=== PATIENT | female | born 1955 | race Caucasian/White ===

== ENCOUNTER 2018-08-25 10:57 | Emergency (ER) | payer OTHER ==
[2018-08-25 11:08] VITALS: BP 140/95; PULSE 70; TEMP 98.3; BMI 21.6
--- NOTE | 2018-08-25 12:18 | PDOC ---
History of Present Illness - General Chief Complaint: Injury Stated Complaint: HEAD INJURY Time Seen by Provider: 08/25/18 11:25 History Source: Patient Exam Limitations: No Limitations - History of Present Illness Initial Comments: 08/25/18 11:55 HISTORY OF PRESENT ILLNESS: This 63-year-old woman denies medical history presents emergency department for evaluation of head trauma. Patient states she was cleaning up some blinds doing community service and when she pulled on one of the jaida the brain she was attached to broke off the tree falling down striking her on the top of her head. Patient denies any loss of consciousness and continued talking immediately after being struck. Patient did not fall to the ground and has not vomited or felt nausea since the incident. Patient denies any blurry vision or dizziness. Patient reported bleeding after the trauma and cited that as the reason for evaluation. No recent travel or sick contacts. PAST MEDICAL HISTORY: Denies past medical history SURGICAL HISTORY: Denies ALLERGIES: Latex and codeine REVIEW OF SYSTEMS General/Constitutional: Denies fever or chills. Denies weakness, weight change. HEENT: Denies change in vision. Denies ear pain or discharge. Denies sore throat. Cardiovascular: Denies chest pain or shortness of breath. Respiratory: Denies cough, wheezing, or hemoptysis. Gastrointestinal: Denies nausea, vomiting, diarrhea or constipation. Denies rectal bleeding. Genitourinary: Denies dysuria, frequency, or change in urination. Musculoskeletal: Denies joint or muscle swelling or pain. Denies neck or back pain. Skin and breasts: Head laceration. Neurologic: Denies headache, vertigo, loss of consciousness, or loss of sensation. Psychiatric: Denies depression or anxiety. Endocrine: Denies increased thirst. Denies abnormal weight change. Hematologic/Lymphatic: Denies anemia, easy bleeding, or history of blood clots. Allergic/Immunologic: Denies hives or skin allergy. Denies latex allergy. PHYSICAL EXAM General Appearance: Well-appearing, appropriately dressed. No apparent distress , no intoxication. HEENT: EOMI, PERRLA, normal ENT inspection, normal voice, TMs normal, pharynx normal. No conjunctival pallor. No photophobia, scleral icterus. Neck: Supple. Trachea midline. No tenderness, rigidity, carotid bruit, stridor , lymphadenopathy, or thyromegaly. Respiratory/Chest: Lungs CTAB. No shortness of breath, chest tenderness, respiratory distress, accessory muscle use. No crackles, rales, rhonchi, stridor , wheezing, dullness Cardiovascular: RRR. S1, S2. No JVD, murmur, bradycardia, tachycardia. Vascular Pulses: Dorsalis-Pedis (R): 2+, Dorsalis-Pedis (L): 2+ Gastrointestinal/Abdominal: Normal bowel sounds. Abdomen soft, non-distended. No tenderness or rebound tenderness. No organomegaly, pulsatile mass, guarding, hernia, hepatomegaly, splenomegaly. Lymphatic: No adenopathy, tenderness. Musculoskeletal/Extremities: Normal inspection. FROM of all extremities, normal capillary refill. Pelvis Stable. No CVA tenderness. No tenderness to extremities, pedal edema, swelling, erythema or deformity. Integumentary: Approximate 2 cm linear superficial laceration present to the left parietal region. 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 Fully oriented, alert. Appropriate mood/affect. Motor strength 5/5. No appreciable EOM palsy, facial droop or sensory deficit. Past History - Past Medical History Allergies/Adverse Reactions: Allergies Allergy/AdvReac Type Severity Reaction Status Date / Time Latex, Natural Rubber Allergy Verified 08/25/18 11:08 codeine AdvReac Verified 08/25/18 11:08 Home Medications: Ambulatory Orders NK [No Known Home Medication] 11/03/14 COPD: No - Immunization History Immunization Up to Date: Yes - Suicide/Smoking/Psychosocial Hx Smoking History: Never smoked Have you smoked in the past 12 months: No Hx Alcohol Use: No Substance Use Type: None *Physical Exam - Vital Signs Last Vital Signs Temp Pulse Resp BP Pulse Ox 98.3 F 70 18 140/95 98 08/25/18 11:05 08/25/18 11:05 08/25/18 11:05 08/25/18 11:05 08/25/18 11:05 Moderate Sedation - Procedure Monitoring Vital Signs: Procedure Monitoring Vital Signs Temperature 98.3 F 08/25/18 11:05 Pulse Rate 70 08/25/18 11:05 Respiratory Rate 18 08/25/18 11:05 Blood Pressure 140/95 08/25/18 11:05 O2 Sat by Pulse Oximetry (%) 98 08/25/18 11:05 Procedures - Consent Consent obtained: Verbal, From Patient - Laceration/Wound Repair Left Lateral Parietal Wound Length: to 2.5 cm Wound Explored: clean Wound's Depth, Shape: superficial Irrigated w/ Saline: Yes Betadine Prep: Yes Anesthesia: 1% Lidocaine Amount of Anesthetic (ccs): 2 Wound Debrided: minimal Wound Repaired With: Jak Number of Sutures: 3 Layer Closure: No Sterile Dressing Applied: No Splint Applied: No Sling Applied: No Progress: 08/25/18 12:19 pt tolerated well Medical Decision Making - Medical Decision Making 08/25/18 11:58 A/P: 63-year-old woman with scalp laceration status post head trauma Neurologic exam is within normal limits Gait steady Denies LOC Denies nausea and has not vomited Approximate 2 cm linear superficial laceration present to the left parietal region of the scalp. Galea is intact. I will defer imaging at this time Laceration repairs-see procedure note for details Discharge home *DC/Admit/Observation/Transfer Diagnosis at time of Disposition: Laceration of scalp Qualifiers: Encounter type: initial encounter Qualified Code(s): S01.01XA - Laceration without foreign body of scalp, initial encounter - Discharge Dispostion Disposition: HOME Condition at time of disposition: Stable Decision to Admit order: No - Referrals Referrals: Real Shah [Primary Care Provider] - - Patient Instructions Additional Instructions: Rest, no exercise or gym until jak are removed May use ice packs tonight as needed for swelling and pain Put a towel over pillow/old pillowcase to avoid damage from bacitracin and bleeding to linens until jak removed Use antibiotic cream/ointment once in the morning once at night until jak are removed May use Tylenol or Motrin for pain relief Return to emergency department for worsening pain, swelling, bleeding, or evidence of serious head injury Staple removal in 5-7 days - Post Discharge Activity
== END 2018-08-25 12:37 | disposition home or self-care (01) ==
LOC: JERFT 10:57
PROC: 0HQ0XZZ Repair Scalp Skin, External Approach (ICD-10-PCS; principal; 2018-08-25)
DX: S01.01XA Laceration without foreign body of scalp, initial encounter (principal); W20.8XXA Other cause of strike by thrown, projected or falling object, initial encounter; Y93.H2 Activity, gardening and landscaping; Y92.89 Other specified places as the place of occurrence of the external cause; Y99.2 Volunteer activity
CPT/HCPCS: 12001; 99281-25